=== PATIENT | female | born 2000 | race African-American/Black ===

== ENCOUNTER 2022-03-08 14:35 | Emergency (ER) | payer OTHER, SELFPAY ==
--- NOTE | 2022-03-08 14:42 | ED.URI ---
HPI - URI/Sore Throat General Chief Complaint: Upper Respiratory Infection Stated Complaint: COUGH/CONGESTION Time Seen by Provider: 03/08/22 14:42 Source: patient and RN notes reviewed History of Present Illness HPI Narrative: Patient is a 21-year-old female presents the urgent care with complaints of cough and chest congestion for the last week. Patient states that she has been using cough drops but is concerned because a friend told her she may have bronchitis . Patient denies any history of bronchitis or pneumonia. Denies any fevers, chills, nausea, vomiting or other upper respiratory complaints. No other acute complaints. No acute distress noted. Patient aware of the plan of care. Some parts of this dictation were generated by voice recognition software and may contain typographical and/or grammatical inaccuracies. Related Data Allergies Allergy/AdvReac Type Severity Reaction Status Date / Time No Known Allergies Allergy Verified 03/08/22 14:53 Review of Systems Review of Systems: CONSTITUTIONAL: Denies fever, chills, or sweats. EYES: Denies visual changes, redness, or discharge. ENT: Denies rhinorrhea, congestion, sore throat, or otalgia. CARDIOVASCULAR: Denies chest pain, palpitations, or edema. RESPIRATORY: Reports of cough without dyspnea GASTROINTESTINAL: Denies abdominal pain, nausea, vomiting, or diarrhea. GENITOURINARY: Denies dysuria or hematuria. SKIN: Denies rash or itching. MUSCULOSKELETAL: Denies back pain, joint pain, or myalgia. NEUROLOGIC: Denies headache, numbness, or weakness. All other systems reviewed are negative, except as documented in HPI. PMFSH Comments At the time of my signature, I reviewed and agree with the nursing past medical, surgical, social, and family history. There is no relevant family history pertinent to the patient complaint. Exam Narrative: GENERAL: This is a well-nourished, well-developed patient, in no apparent distress. HEAD: normocephalic, atraumatic. EYES: PERRL. Sclera clear/white. Vision is grossly intact. EARS: External ears normal, auditory canals clear and without drainage, unable to visualize right TM due to cerumen impaction. Left TM normal without perforation. Hearing grossly intact. NOSE: External nose normal with no obvious nasal discharge, nares without redness, no rhinorrhea. THROAT: Mucous membranes moist, posterior pharynx clear. Mild postnasal drainage NECK: Neck supple, CARDIOVASCULAR: Regular rate and rhythm without murmurs, gallops, or rubs. RESPIRATORY: Clear to auscultation. Breath sounds equal bilaterally. No wheezes, rales, or rhonchi. SKIN: warm, intact with no suspicious lesions or rash, good texture and turgor. NEURO: awake, alert, and oriented to person, place and time. There were no obvious focal neurologic abnormalities. EXTREMITIES: No clubbing, cyanosis, or edema. Course Course Level of Care: Express Care Visit Vital Signs Vital signs: Vital Signs Temperature 96.9 F L 03/08/22 14:51 Pulse Rate 76 03/08/22 14:51 Respiratory Rate 16 03/08/22 14:51 Blood Pressure 111/67 03/08/22 14:51 Pulse Oximetry 100 03/08/22 14:51 Temperature 96.9 F L 03/08/22 14:51 Pulse Rate 76 03/08/22 14:51 Respiratory Rate 16 03/08/22 14:51 Blood Pressure 111/67 03/08/22 14:51 Pulse Oximetry 100 03/08/22 14:51 Reviewed MDM - URI/Sore Throat MDM Narrative Medical decision making narrative: Advised patient to take a daily antihistamine such as Claritin or Zyrtec. May use Benadryl prior to bedtime if cough is persistent when laying down. Use the Tessalon Perles as needed for nonproductive cough to help suppress the cough. May continue cough drops. Follow-up with your PCP within 2 to 5 days or for worsening symptoms or failure to improve. Differential Diagnosis Differential diagnosis: Likely upper respiratory infection, otitis media, sinusitis, viral infection, bronchitis and influenza Lab Data Attestation: I reviewed t
[2022-03-08 14:51] VITALS: BP 111/67; PULSE 76; RESP 16; TEMP 36.1; O2SAT 100
[2022-03-08 14:56] VITALS: BP 111/67; PULSE 76; RESP 16; TEMP 36.1; O2SAT 100
== END 2022-03-08 14:59 | disposition home or self-care (01) ==
PROVIDERS: Emergency Provider Nurse Practitioner Family
DX: R05.9 Cough, unspecified (principal)
CPT/HCPCS: 99213; G0463